=== PATIENT | male | born 1970 | race African-American/Black ===

== ENCOUNTER 2024-05-10 17:53 | Emergency (ER) | payer OTHER ==
[2024-05-10] MEDS ORDERED: hydrOXYzine 25 MG TAB ONE (18:32)
== END 2024-05-10 20:28 | disposition home or self-care (01) ==
LOC: ERS 17:53
DX: S80.862A Insect bite (nonvenomous), left lower leg, initial encounter (principal); S80.861A Insect bite (nonvenomous), right lower leg, initial encounter; S30.861A Insect bite (nonvenomous) of abdominal wall, initial encounter; S00.06XA Insect bite (nonvenomous) of scalp, initial encounter; I10 Essential (primary) hypertension; E11.9 Type 2 diabetes mellitus without complications; F17.210 Nicotine dependence, cigarettes, uncomplicated; W57.XXXA Bitten or stung by nonvenomous insect and other nonvenomous arthropods, initial encounter
CPT/HCPCS: 99282